=== PATIENT | male | born 1965 | race Caucasian/White ===

== ENCOUNTER 2023-10-10 08:58 | Outpatient (AMB) | payer OTHER, SELFPAY ==
--- NOTE | 2023-10-10 09:02 | AM.OFFWIN_ITS ---
Intake Vital Signs 10/10/23 09:45 Height 5 ft 11 in Weight 252 lb BMI 35.1 BP 126/80 Blood Pressure Location Lt brachial Position Sitting Pulse 90 Pulse Oximetry (%) 96 Intake Visit Reasons: elev blood sugar Intake Note: Patient is here for evaluation of elevated blood sugar. Patient reports he had recent labs completed on 09/30/23 and was informed by the ordering provider to see an urgent care of patients PCP for blood sugar being 386. Patient states he has a strong family history of DM and a medical history of Poriadic arthritis Patient reports he has not seen his PCP in a few years. PCP is Dr. Meza. Accompanied by: Self / Same As Patient Allergies No Known Allergies Allergy (Verified 10/10/23 09:21) Medication List - Last Reconciled 10/10/23 by Milka Pike, MECHANICAL MAINTENANCE SUPERVISOR- guselkumab (Tremfya) 100 mg subcut Q8W Do you need a note to return to daycare/school/sports/work: No HPI HPI Comments History of Present Illness Details 57 y/o M with obesity, psoriasis, alcoho l dependence Specialists: Rheum Derm Here today for c/o elevated blood sugars w/o dx of DM. Last Saturday labs done at [facility] ordered by Derm. Told of elevated glucose, Advised to f/u. HgA1c 10.2% done in office today. Has never been on meds for DM. Admits 40 lb wt loss, numbness and tingling in lower ext and blurred vision. Drinks 60 beers/week. Review of Systems Const All systems reviewed & are unremarkable except as noted in HPI and below Physical Exam Const Other: awake alert NAD scleras nonicteric MMM RRR LS CTAB Assessment & Plan Assessment & Plan (1) Diabetes mellitus type 2 with complications: Comment: hga1c 10.2% today, new Dx. Start Metformin 1000mg po BID Refer to DM Eye exam Check labs; declined education. Code(s): E11.8 - Type 2 diabetes mellitus with unspecified complications (2) Severe obesity (BMI 35.0-39.9) with comorbidity: Comment: life style mods encouraged. Code(s): E66.01 - Morbid (severe) obesity due to excess calories Plan: . Plan Total time spent caring for the patient today was 40 minutes. This includes time spent before the visit reviewing the chart, time spent during the visit, and time spent after the visit on documentation This note is constructed using voice recognition software. While every effort has been made to ensure accuracy in slate mixer, still errors may have been included Sometimes, these errors may affect the content or meaning of the given sentence . Orders: Orders Amylase Today E11.8 - Type 2 diabetes mellitus with unspecified complications Microalbumin, Random (w Creat) Today E11.8 - Type 2 diabetes mellitus with unspecified complications Lipase Today E11.8 - Type 2 diabetes mellitus with unspecified complications Vitamin B12 and Folate Today E11.8 - Type 2 diabetes mellitus with unspecified complications LDL Cholesterol Direct Today E11.8 - Type 2 diabetes mellitus with unspecified complications Comprehensive Met. Panel Today E11.8 - Type 2 diabetes mellitus with unspecified complications Referrals Ophthalmology Referral E11.8 - Type 2 diabetes mellitus with unspecified complications Medications: New metformin 1,000 mg PO BIDWMEAL 180 tabs 0RF Patient Instructions: RTO IN 2 WEEKS TO REVIEW LABS/EST CARE Coding Level of Care Code New Pt Level 4 (70013) Diagnoses Diabetes mellitus type 2 with complications E11.8 Severe obesity (BMI 35.0-39.9) with comorbidity E66.01
[2023-10-10 09:45] VITALS: BP 126/80; PULSE 90; O2SAT 96; BMI 35.1
== END 2023-10-10 15:25 | disposition home or self-care (01) ==
PROVIDERS: Visit Provider Nurse Practitioner Family
DX: E11.8 Type 2 diabetes mellitus with unspecified complications (principal); E66.01 Morbid (severe) obesity due to excess calories; Z68.35 Body mass index [BMI] 35.0-35.9, adult
CPT/HCPCS: 99204

== ENCOUNTER 2023-10-10 09:49 | Outpatient (REF) | payer OTHER, SELFPAY ==
[2023-10-10 12:16] LABS: Alanine Aminotransferase 25 U/L (0-40); Albumin Level 4.2 g/dL (3.5-5.0); Alkaline Phosphatase 69 U/L (39-117); Amylase 53 U/L (28-100); Anion Gap 11 (12-20); Aspartate Amino Transferase 22 U/L (5-37); Bilirubin Total 0.7 mg/dL (0.0-1.0); Blood Urea Nitrogen 14 mg/dL (9-16); Calcium 9.3 mg/dL (8.4-10.2); Carbon Dioxide 27 mmol/L (22-29); Chloride 105 mmol/L (96-108); Estimated Glomerular Filt Rate > 60; Glucose Random 306 mg/dL (60-115); Lipase 29 U/L (8-78); Potassium 4.2 mmol/L (3.3-5.1); Sodium 139 mmol/L (135-145); Total Protein 7.6 g/dL (6.5-8.0)
[2023-10-10 12:30] LABS: Creatinine Urine 102.65 mg/dL; Microalbum/Creatinine Ratio Ur 6.8 ug/mg cr (<30)
[2023-10-10 18:21] LABS: Folate 6.9 ng/mL (> or = 4.0); Vitamin B12 295 pg/mL (200-900)
[2023-10-11 14:39] LABS: LDL Cholesterol Direct 156 mg/dL (<100)
== END 2023-10-10 09:50 | disposition home or self-care (01) ==
LOC: HO.WFDLDS 09:49
PROVIDERS: Visit Provider Nurse Practitioner Family
DX: E11.8 Type 2 diabetes mellitus with unspecified complications (principal)
CPT/HCPCS: 36415; 80053; 82043; 82150; 82570; 82607; 82746; 83690; 83721

== ENCOUNTER 2023-11-21 07:48 | Outpatient (AMB) | payer OTHER, SELFPAY ==
--- NOTE | 2023-11-21 07:51 | A.OFFPC_ITS ---
Vital Signs 11/21/23 07:54 11/21/23 08:21 Height 5 ft Weight 5 lb 11 oz BMI 1.1 BP 132/74 Blood Pressure Location Lt brachial Position Sitting Pulse 88 Pulse Source Auscultation Pulse Oximetry (%) 98 Oxygen Delivery Method Room Air Intake Visit Reasons: Est Care Allergies No Known Allergies Allergy (Verified 11/21/23 07:54) Medication List - Last Reconciled 11/21/23 by Milka Pike, MOTORCYCLE POLICE OFFICER-BC guselkumab (Tremfya) 100 mg subcut Q8W metformin 1,000 mg PO BIDWMEAL Tobacco use date assessed: 11/21/23 Dental Screening Dental Screen Date: 11/21/23 Did you have a dental visit in the last 12 months?: No Did you have a dental problem in the last 6 months where you did not have access to dental care?: No Was dental information given to patient?: Patient has dentist HPI HPI Comments History of Present Illness Details 58 y/o M with obesity, psoriasis, alcoho l dependence , DM2, hyperlipidemia, 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 Repeat in 10 years. DM Eye - referral placed. [facility] Here today to establish primary care. Last seen at the walk-in clinic on October 09. Results from labs on that day as below. Labs from 10/10/2023 show normal electrolytes, normal renal function, elevated random glucose of 306, normal LFTs, normal amylase, normal lipase, normal B12 although on the low end of normal at 295, normal folate, normal urine microalbumin creatinine ratio, direct LDL 156 Since last office visit he has been taking the metformin as directed. Testing his blood sugar in the morning and reports that it is around 140-150. Did have GI upset at the onset of metformin use. However this has remedies. He does complain of numbness and decreased feeling in bilateral lower extremities worse on the right side. He reports chronic generalized pain specifically in the left upper extremity related to his psoriatic arthritis. He is followed by Rheumatology as well as Dermatology. He reports multiple images of his spine done. I have requested for him to sign in [place] so that I may review these records. He has not currently on a statin but he is willing to start 1. He has taking a lot of ibuprofen 800 mg to treat his radicular pain. He is never tried anything else for his pain. He is interested in starting meloxicam. Start rosuvastatin Start meloxicam [facility] Social History Housing: Apartment Patient Tobacco Use Status: Former Tobacco user Quit Date: 36 years ago Tobacco use type: Cigarette Cigarette Packs Per Day: 1 Years Smoked: 10 e-Cigarette/Vaping Use: Never Used service: No Current occupational status: employed Current occupation: contractor Current occupational exposures/hazards: No Cognitive needs: No Hearing needs: No Vision needs: Yes (glasses ) Questionnaire PHQ-9 Over the last 2 weeks, how often have you been bothered by any of the following problems? 1. Little interest or pleasure in doing things: not at all 2. Feeling down, depressed, or hopeless: not at all 3. Trouble falling or staying asleep, or sleeping too much: not at all 4. Feeling tired or having little energy: not at all 5. Poor appetite or overeating: not at all 6. Feeling bad about yourself - or that you are a failure or have let yourself or your family down: not at all 7. Trouble concentrating on things, such as reading the newspaper or watching television: not at all 8. Moving or speaking so slowly that other people could have noticed. Or the opposite - being so fidgety or restless that you have been moving around a lot more than usual: not at all 9. Thoughts that you would be better off or of hurting yourself in some way: not at all Total score: 0 Depression Screening Interpretation: Negative Depression Screening Done: Yes 98987 - PHQ-9 Billing: Yes Source: Developed by Drs. Jeffery Sutton, Mara Herndon, Ja Holguin and colleagues, with an educational kenny from [employer]. Thrive Questionnaire Date Thrive assessed: 11/21/23 I am a: Patient What is your living situation today?: I have a steady place to live Within the past 12 months, did the food you bought not last and you didn't have the money to get more?: Never true Within the past 12 months, did you worry whether your food would run out before you got money to buy more?: Never true Do you have trouble paying for medicines?: No Do you have trouble getting transportation to medical appointments?: No Do you have trouble paying your heating and electricity bill?: No Do you have trouble taking care of your child, family member or friend?: No Do you have trouble with day-to-day activities such as bathing, preparing meals, shopping, managing finances, etc.?: No Are you currently unemployed and looking for a job?: No Are you interested in more education?: No Please select the resources that you would like help with: None Currently or been in a relationship where the following occur: no concerns reported THRIVE Score: 0 AUDIT C Alcohol Use Questionnaire (AUDIT-C) 1. How often do you have a drink containing alcohol?: 4 or more times a week 2. How many drinks containing alcohol do you have on a typical day when you are drinking?: 1 or 2 3. How often do you have six or more drinks on one occasion?: Weekly Total Score: 7 Score Reviewed/Action Taken: Yes ARISTIDES-7 AMB Questionnaire ARISTIDES-7 Date ARISTIDES - 7 assessed: 11/21/23 Feeling nervous, anxious, or on edge: 0 = Not at all Not being able to stop or control worryin = Not at all Worrying too much about different things: 0 = Not at all Trouble relaxin = Not at all Being so restless that it is hard to sit still: 0 = Not at all Becoming easily annoyed or irritable: 0 = Not at all Feeling afraid as if something awful might happen: 0 = Not at all Total ARISTIDES-7 score (0-4 normal; 5-9 mild; 10-14 moderate; 15-21 severe): 0 Source: Developed by Drs. Jeffery Sutton, Mara Herndon, Ja Holguin and colleagues, with an educational kenny from [employer]. ARISTIDES-7 Assessment Billing ARISTIDES-7 Assessment Tool: ARISTIDES-7 Assessment 61018 Review of Systems Const All systems reviewed & are unremarkable except as noted in HPI and below Physical exam (Primary Care) Vital Signs: Last Vital Signs Pulse 88 11/21/23 08:21 BP 132/74 11/21/23 08:21 Pulse Ox 98 11/21/23 08:21 Oxygen Delivery Method Room Air 11/21/23 08:21 BMI result Body Mass Index 1.1 BMI Assessment/Plan discussion: High BMI High, discussed plan: lifestyle Tobacco/Smoking Status: Tobacco use Status Tobacco use date assessed 11/21/23 11/21/23 08:00 Patient Tobacco Use Status Former Tobacco user 11/21/23 08:00 Tobacco use type Cigarette 11/21/23 08:00 e-Cigarette/Vaping Use Never Used 11/21/23 08:00 PHQ-9: PHQ-9 Score PHQ-9: Total score 0 11/21/23 08:00 Depression Screening Interpretation: Negative Thrive Assessment: Date of Thrive Assessment Date Thrive assessed 11/21/23 11/21/23 08:00 Currently or been in a relationship where the following occur: no concerns reported Advance Care Planning discussion: Exists, not on file Date of discussion: 11/21/23 Who was present: Self Forms completed: Health Care Proxy and MOLST Actual minutes spent: 3 Const Other: Awake alert oriented Sclera is nonicteric bilat Regular rate and rhythm Lung sounds clear to auscultation bilat Bilateral lower extremities hairless from toes to custodial up lower leg, trace edema, skin intact, positive pedal pulses, abnormal monofilament and vibratory exam bilateral right worse than left. Office Procedures Diabetic Foot Exam G9226 - Diabetic Foot Exam Assessment and Plan Assessment & Plan (1) Diabetes mellitus type 2 with complications: Comment: hga1c 10.2% 10/20/2023 Continue Metformin 1000mg po BID Refer to DM Eye exam Code(s): E11.8 - Type 2 diabetes mellitus with unspecified complications (2) Hyperlipidemia associated with type 2 diabetes mellitus: Comment: LDL goal less than 70. Start rosuvastatin 20 mg p.o. daily. Code(s): E11.69 - Type 2 diabetes mellitus with other specified complication; E78.5 - Hyperlipidemia, unspecified (3) Screening for prostate cancer: Comment: Check PSA at next routine lab draw. Code(s): Z12.5 - Encounter for screening for malignant neoplasm of prostate (4) Peripheral sensory neuropathy due to type 2 diabetes mellitus: Comment: Affecting bilateral lower extremities. Goal will be to control diabetes and cholesterol. Monitor skin integrity Code(s): E11.42 - Type 2 diabetes mellitus with diabetic polyneuropathy (5) EtOH dependence: Comment: Current everyday ETOH use. About 60 beers a week. Reduction encouraged. B12 at the low end of normal. Start B12 2000 mcg daily. Code(s): F10.20 - Alcohol dependence, uncomplicated Qualifiers: Substance use status: uncomplicated Qualified Code(s): F10.20 - Alcohol dependence, uncomplicated (6) PVD (peripheral vascular disease): Comment: Based on clinical exam of hairless bilateral lower extremities. Start rosuvastatin. Code(s): I73.9 - Peripheral vascular disease, unspecified (7) Psoriatic arthritis: Comment: Managed by Dermatology as well as Rheumatology. [facility]. Dr. Brito. 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 Managed by Dermatology. 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 While every effort has been made to ensure accuracy in occ ther, still errors may have been included Sometimes, these errors may affect the content or meaning of the given sentence . Total time spent caring for the patient today was 60 minutes. This includes time spent before the visit reviewing the chart, time spent during the visit, and time spent after the visit on documentation Orders: Orders Lipid Panel 12/23/23 E11.69 - Type 2 diabetes mellitus with other specified complication, E11.8 - Type 2 diabetes mellitus with unspecified complications, E78.5 - Hyperlipidemia, unspecified, Z12.5 - Encounter for screening for malignant neoplasm of prostate Vitamin D 1,25 dihydroxy 12/23/23 E11.69 - Type 2 diabetes mellitus with other specified complication, E11.8 - Type 2 diabetes mellitus with unspecified complications, E78.5 - Hyperlipidemia, unspecified, Z12.5 - Encounter for screening for malignant neoplasm of prostate Vitamin B12 and Folate 12/23/23 E11.69 - Type 2 diabetes mellitus with other specified complication, E11.8 - Type 2 diabetes mellitus with unspecified complications, E78.5 - Hyperlipidemia, unspecified, Z12.5 - Encounter for screening for malignant neoplasm of prostate PSA, Ultra Sensitive 12/23/23 E11.69 - Type 2 diabetes mellitus with other specified complication, E11.8 - Type 2 diabetes mellitus with unspecified complications, E78.5 - Hyperlipidemia, unspecified, Z12.5 - Encounter for screening for malignant neoplasm of prostate AMB Diabetic Foot Exam Today E11.8 - Type 2 diabetes mellitus with unspecified complications Comprehensive [place]. Panel Fast 12/23/23 E11.69 - Type 2 diabetes mellitus with other specified complication, E11.8 - Type 2 diabetes mellitus with unspecified complications, E78.5 - Hyperlipidemia, unspecified, Z12.5 - Encounter for screening for malignant neoplasm of prostate Hemoglobin A1c 12/23/23 E11.69 - Type 2 diabetes mellitus with other specified complication, E11.8 - Type 2 diabetes mellitus with unspecified complications, E78.5 - Hyperlipidemia, unspecified, Z12.5 - Encounter for screening for malignant neoplasm of prostate TSH reflex Free T4 12/23/23 E11.69 - Type 2 diabetes mellitus with other specified complication, E11.8 - Type 2 diabetes mellitus with unspecified complications, E78.5 - Hyperlipidemia, unspecified, Z12.5 - Encounter for screening for malignant neoplasm of prostate Referrals Ophthalmology Referral E11.8 - Type 2 diabetes mellitus with unspecified com plications Medications: New meloxicam 15 mg PO DAILY 90 tabs 0RF rosuvastatin 20 mg PO DAILY 90 tabs 0RF mecobalamin (vitamin B12) 1,000 mcg PO DAILY 90 tabs 2RF Patient Instructions: Return to the office in December to follow up on chronic diseases, Be sure to get fasting labs done 1 week before so that we may discuss. Take all medications as directed. Return to the office sooner should you need anything. Coding Level of Care Code Est Pt Level 5 (47334) Complex EM visit Add On G2211 Diagnoses Diabetes mellitus type 2 with complications E11.8 Hyperlipidemia associated with type 2 diabetes mellitus E11.69; E78.5 Screening for prostate cancer Z12.5 Peripheral sensory neuropathy due to type 2 diabetes mellitus E11.42 Uncomplicated alcohol dependence F10.20 Substance use status: uncomplicated PVD (peripheral vascular disease) I73.9 Psoriatic arthritis L40.50 Immune disorder D89.9 CPT Codes Diabetic Foot Exam - CPT: G9226 - Diabetic Foot Exam ([id number]) Additional Codes ARISTIDES-7 Assessment Billing - ARISTIDES-7 Assessment Tool: ARISTIDES-7 Assessment 17588 ([id number]) Vital Signs *Quality* - Advance Care Planning discussion: Exists, not on file ([id number])
[2023-11-21 08:21] VITALS: BP 132/74; PULSE 88; O2SAT 98
== END 2023-11-21 08:36 | disposition home or self-care (01) ==
PROVIDERS: Visit Provider Nurse Practitioner Family
DX: E11.69 Type 2 diabetes mellitus with other specified complication (principal); E11.42 Type 2 diabetes mellitus with diabetic polyneuropathy; F10.20 Alcohol dependence, uncomplicated; I73.9 Peripheral vascular disease, unspecified; L40.50 Arthropathic psoriasis, unspecified; D89.9 Disorder involving the immune mechanism, unspecified; Z00.00 Encounter for general adult medical examination without abnormal findings; E78.5 Hyperlipidemia, unspecified; Z12.5 Encounter for screening for malignant neoplasm of prostate
CPT/HCPCS: 1123F; 99215; 99417; G2211; G9226

== ENCOUNTER 2024-09-29 07:55 | Outpatient (AMB) | payer OTHER, SELFPAY ==
--- NOTE | 2024-09-29 07:58 | A.OFFPC_ITS ---
Vital Signs 09/29/24 08:11 Height 6 ft 1 in Weight 263 lb 4 oz BMI 34.7 BP 132/76 Blood Pressure Location Lt brachial Position Sitting Respiration 13 Pulse 78 Pulse Source Pulse Oximeter Temp 97.4 F Temp Source Oral Pulse Oximetry (%) 98 Oxygen Delivery Method Room Air Intake Visit Reasons: Diabetes Intake Note: Follow up on diabetes and needs refill on meds Fish Butcher Required: No Allergies No Known Allergies Allergy (Verified 09/29/24 08:22) Medication List - Last Reconciled 09/29/24 by Milka Pike, ELECTRONICS REPAIR TECHNICIAN- guselkumab (Tremfya) 100 mg subcut Q8W mecobalamin (vitamin B12) 1,000 mcg PO DAILY meloxicam 15 mg PO DAILY metformin 1,000 mg PO DAILY rosuvastatin 20 mg PO DAILY Tobacco use date assessed: 09/29/24 Dental Screening Dental Screen Date: 09/29/24 Did you have a dental visit in the last 12 months?: Yes Did you have a dental problem in the last 6 months where you did not have access to dental care?: No Was dental information given to patient?: Patient has dentist HPI HPI Comments History of Present Illness Details 58 y/o M with obesity, psoriasis, alcoho l dependence , DM2, hyperlipidemia, 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 Repeat in 10 years. DM Eye - referral placed. [facility] Tdap to be given at next visit The patient is a 58-year-old male presenting with Type 2 Diabetes Mellitus. - Diabetes has seen remarkable improveme nt with an A1C drop to 7.2 from 10.2 documented previously, facilitated by reduced alcohol intake and diligent glucose monitoring at home. Metformin-induced gastrointestinal distress necessitates evening administration. Only can tolerate once per day. Not on ER version as insurance denied previously. Has not scheduled eye exam yet.Advised of need to do this CARRIE. - The patient's arthritis predominantly affects the hands, posing significant challenges in movement and functionality. The condition is chronic with progressive symptoms over time. R index finger is locked. R hand dominant. Interested in seeing Ortho. Meloxicam helps but only for 4 hours. - Psoriasis management with Jim, man aged by [facility]. - Neuropathy BLE manifests as persistent lower limb numbness and tingling from below knees. - Hyperlipidemia is addressed through on going rosuvastatin regimen, supported by dietary improvements. Wonders about measles immunity w/ recent outbreaks.Vaccinated in childhood. Labs drawn today, results pending Results: Labs from 10/10/2023 show normal electrolytes, normal renal function, elevated random glucose of 306, normal LFTs, normal amylase, normal lipase, normal B12 although on the low end of normal at 295, normal folate, normal urine microalbumin creatinine ratio, direct LDL 156 Discussion During our discussion, I addressed the patient's Type 2 Diabetes Mellitus management, acknowledging the positive progression in A1C levels. Plan to switch to an extended-release formulation of metformin to mitigate gastric effects,will need PA. Additionally, we discussed arthritis and neuropathy issues, with a plan to transition pain management to diclofenac, stop meloxicam. Refer to Ortho for hands. Does not want to see Rheum. Education on the risks of uncontrolled glucose on neuropathy and further complications was provided. Monitor skin integrity BLE. We reviewed the importance of ongoing eye exams due to the diabetic diagnosis and psoriasis treatment history. A&P 1. Type 2 Diabetes Mellitus: Current man agement includes metformin, with improved A1C levels demonstrating effective control since alcohol reduction. Transitioning to extended-release metformin pending insurance approval to alleviate side effects. 2gm/day 2. Arthritis: The significant impact on hand function warrants a change to diclofenac for pain management, given current regimen limitations. Refer to [facility] ortho 3. Psoriasis: Tremfya treatment continue s; dermatology follow-up is upcoming. 4. Hyperlipidemia: Ongoing rosuvastatin, labs pending 5. Neuropathy: Symptoms remain, highligh ting the importance of continued glucose management. 6. Alcohol Use Disorder (in remission): Encouragement extended for ongoing reduced use. Patient was informed and verbally consented to the use of an ambient scribe for clinic note documentation during this visit. Total time spent caring for the patient today was 45 minutes. This includes time spent before the visit reviewing the chart, time spent during the visit, and time spent after the visit on documentation, reviewing laboratory results, diagnostic imaging, medications, performing a medically necessary evaluation, counseling on diagnoses, care coordination, ordering appropriate tests, ordering appropriate medications, review of tests performed by other providers, reporting test results with the patient, communication with other healthcare providers. [facility] Surgical History (Updated 09/29/24 @ 07:06 by Milka Pike, [facility]) History of colonoscopy (~2020) Social History Housing: Apartment Patient Tobacco Use Status: Former Tobacco user Tobacco use type: Cigarette Cigarette Packs Per Day: 1 Years Smoked: 10 e-Cigarette/Vaping Use: Never Used service: No Current occupational status: employed Current occupation: contractor Current occupational exposures/hazards: No Cognitive needs: No Hearing needs: No Vision needs: Yes (glasses ) Questionnaire PHQ-9 Over the last 2 weeks, how often have you been bothered by any of the following problems? 1. Little interest or pleasure in doing things: not at all 2. Feeling down, depressed, or hopeless: not at all 3. Trouble falling or staying asleep, or sleeping too much: not at all 4. Feeling tired or having little energy: not at all 5. Poor appetite or overeating: not at all 6. Feeling bad about yourself - or that you are a failure or have let yourself or your family down: not at all 7. Trouble concentrating on things, such as reading the newspaper or watching television: not at all 8. Moving or speaking so slowly that other people could have noticed. Or the opposite - being so fidgety or restless that you have been moving around a lot more than usual: not at all 9. Thoughts that you would be better off or of hurting yourself in some way: not at all Total score: 0 Depression Screening Interpretation: Negative Depression Screening Done: Yes 56480 - PHQ-9 Billing: Yes Source: Developed by Drs. Jeffery Sutton, Mara Herndon, Ja Holguin and colleagues, with an educational kenny from [employer]. Thrive Questionnaire Date Thrive assessed: 09/29/24 I am a: Patient What is your living situation today?: I have a steady place to live Within the past 12 months, did the food you bought not last and you didn't have the money to get more?: Never true Within the past 12 months, did you worry whether your food would run out before you got money to buy more?: Never true Do you have trouble paying for medicines?: No Do you have trouble getting transportation to medical appointments?: No Do you have trouble paying your heating and electricity bill?: No Do you have trouble taking care of your child, family member or friend?: No Do you have trouble with day-to-day activities such as bathing, preparing meals, shopping, managing finances, etc.?: No Are you currently unemployed and looking for a job?: No Are you interested in more education?: No THRIVE Score: 0 AUDIT C Alcohol Use Questionnaire (AUDIT-C) 1. How often do you have a drink containing alcohol?: 2-4 times a month 2. How many drinks containing alcohol do you have on a typical day when you are drinking?: 5 or 6 3. How often do you have six or more drinks on one occasion?: Less than monthly Total Score: 5 Score Reviewed/Action Taken: Yes ARISTIDES-7 AMB Questionnaire ARISTIDES-7 Date ARISTIDES - 7 assessed: 09/29/24 Feeling nervous, anxious, or on edge: 0 = Not at all Not being able to stop or control worryin = Not at all Worrying too much about different things: 0 = Not at all Trouble relaxin = Not at all Being so restless that it is hard to sit still: 0 = Not at all Becoming easily annoyed or irritable: 0 = Not at all Feeling afraid as if something awful might happen: 0 = Not at all Total ARISTIDES-7 score (0-4 normal; 5-9 mild; 10-14 moderate; 15-21 severe): 0 Source: Developed by Drs. Jeffery Sutton, Mara Herndon, Ja Holguin and colleagues, with an educational kenny from [employer]. ARISTIDES-7 Assessment Billing ARISTIDES-7 Assessment Tool: ARISTIDES-7 Assessment 65416 Physical exam (Primary Care) Vital Signs: Last Vital Signs Temp 97.4 F 09/29/24 08:11 Pulse 78 09/29/24 08:11 Resp 13 09/29/24 08:11 BP 132/76 09/29/24 08:11 Pulse Ox 98 09/29/24 08:11 Oxygen Delivery Method Room Air 09/29/24 08:11 BMI result Body Mass Index 34.7 BMI Assessment/Plan discussion: High BMI High, discussed plan: lifestyle Tobacco/Smoking Status: Tobacco use Status Tobacco use date assessed 09/29/24 09/29/24 08:01 Patient Tobacco Use Status Former Tobacco user 09/29/24 07:59 Tobacco use type Cigarette 09/29/24 07:59 e-Cigarette/Vaping Use Never Used 09/29/24 07:59 PHQ-9: PHQ-9 Score PHQ-9: Total score 0 09/29/24 07:59 Depression Screening Interpretation: Negative Thrive Assessment: Date of Thrive Assessment Date Thrive assessed 09/29/24 09/29/24 07:59 Advance Care Planning discussion: Exists, not on file Date of discussion: 11/21/23 Who was present: Self Forms completed: Health Care Proxy and MOLST Actual minutes spent: 3 Const Other: Awake alert oriented Sclera is nonicteric bilat Regular rate and rhythm Lung sounds clear to auscultation bilat LROM R index finger, neurovasc intact, pain over hands and fingers w/ palp and active ROM generally speaking Bilateral lower extremities hairless from toes to [facility] up lower leg, no edema, skin intact, positive pedal pulses, abnormal monofilament and vibratory exam bilateral right worse than left. Office Procedures Diabetic Foot Exam G9226 - Diabetic Foot Exam Results AMB Hemoglobin A1c AMB Hemoglobin A1c 7.2 % Last Edit by Paulina Cintron MA on 09/29/24 08:31 Coding Level of Care Code Est Pt Level 5 (76207) Complex EM visit Add On G2211 Diagnoses Diabetes mellitus type 2 with complications E11.8 Trigger index finger of right hand M65.321 Trigger finger location: index finger Immune disorder D89.9 Uncomplicated alcohol dependence F10.20 Substance use status: uncomplicated Hyperlipidemia associated with type 2 diabetes mellitus E11.69; E78.5 Peripheral sensory neuropathy due to type 2 diabetes mellitus E11.42 Psoriatic arthritis L40.50 PVD (peripheral vascular disease) I73.9 Obesity (BMI 30-39.9) E66.9 CPT Codes Diabetic Foot Exam - CPT: G9226 - Diabetic Foot Exam ([id number]) Additional Codes ARISTIDES-7 Assessment Billing - ARISTIDES-7 Assessment Tool: ARISTIDES-7 Assessment 45701 ([id number]) PHQ-9 - 31993 - PHQ-9 Billing: Yes ([id number]) Vital Signs *Quality* - Advance Care Planning discussion: Exists, not on file ([id number]) Assessment & Plan Assessment & Plan (1) Diabetes mellitus type 2 with complications: Code(s): E11.8 - Type 2 diabetes mellitus with unspecified complications Category: Medical (2) Right trigger finger: Code(s): M65.30 - Trigger finger, unspecified finger Category: Medical Qualifiers: Trigger finger location: index finger Qualified Code(s): M65.321 - Trigger finger, right index finger (3) Immune disorder: Comment: Secondary to the use tremfya, at risk for infection and neutropenia. Managed by Dermatology. Code(s): D89.9 - Disorder involving the immune mechanism, unspecified Category: Medical (4) EtOH dependence: Comment: Current everyday ETOH use. About 60 beers a week. Reduction encouraged. B12 at the low end of normal. on B12 2000 mcg daily. Code(s): F10.20 - Alcohol dependence, uncomplicated Category: Medical Qualifiers: Substance use status: uncomplicated Qualified Code(s): F10.20 - Alcohol dependence, uncomplicated (5) Hyperlipidemia associated with type 2 diabetes mellitus: Comment: LDL goal less than 70. on rosuvastatin 20 mg p.o. daily. Code(s): E11.69 - Type 2 diabetes mellitus with other specified complication; E78.5 - H yperlipidemia, unspecified Category: Medical (6) Peripheral sensory neuropathy due to type 2 diabetes mellitus: Comment: Affecting bilateral lower extremities. Goal will be to control diabetes and cholesterol. Monitor skin integrity Code(s): E11.42 - Type 2 diabetes mellitus with diabetic polyneuropathy Category: Medical (7) Psoriatic arthritis: Comment: Managed by Dermatology as well as Rheumatology. [facility]. Dr. Brito. Reports no longer active with Rheum as Derm is managing on tremfya Code(s): L40.50 - Arthropathic psoriasis, unspecified Category: Medical (8) PVD (peripheral vascular disease): Comment: Based on clinical exam of hairless bilateral lower extremities. on rosuvastatin. Code(s): I73.9 - Peripheral vascular disease, unspecified Category: Medical (9) Obesity (BMI 30-39.9): Comment: with dm and hld Code(s): E66.9 - Obesity, unspecified Category: Medical Plan . Orders: Orders AMB Hemoglobin A1c Today E11.8 - Type 2 diabetes mellitus with unspecified complications, Z13.9 - Encounter for screening, unspecified Microalbumin, Random (w Creat) Today E11.8 - Type 2 diabetes mellitus with unspecified complications MMR IgG Measles Mumps Rubella Today D89.9 - Disorder involving the immune mechanism, unspecified Referrals Orthopedics Referral M65.30 - Trigger finger, unspecified finger Medications: New metformin ER 1,000 mg (2 x 500 mg) PO BID 90 days 360 tabs 2RF diclofenac sodium 50 mg PO Q12H PRN 180 tabs 2RF pain Discontinued meloxicam Discontinued Reason: Patient Completed Course 15 mg PO DAILY 90 tabs 0RF
[2024-09-29 08:11] VITALS: BP 132/76; PULSE 78; RESP 13; TEMP 36.3; O2SAT 98; BMI 34.7
== END 2024-09-29 08:43 | disposition home or self-care (01) ==
LOC: HO.HMCFM 07:55
PROVIDERS: PCP Nurse Practitioner Family; Visit Provider Nurse Practitioner Family
DX: E11.8 Type 2 diabetes mellitus with unspecified complications (principal); M65.321 Trigger finger, right index finger; D89.9 Disorder involving the immune mechanism, unspecified; F10.20 Alcohol dependence, uncomplicated; E11.69 Type 2 diabetes mellitus with other specified complication; E78.5 Hyperlipidemia, unspecified; E11.42 Type 2 diabetes mellitus with diabetic polyneuropathy; L40.50 Arthropathic psoriasis, unspecified; I73.9 Peripheral vascular disease, unspecified; E66.9 Obesity, unspecified; Z13.9 Encounter for screening, unspecified; Z00.00 Encounter for general adult medical examination without abnormal findings

== ENCOUNTER 2024-09-29 07:55 | Outpatient (REF) | payer OTHER, SELFPAY ==
[2024-09-30 10:08] LABS: Rubella IgG Antibody 1.79 Index; Rubeola IgG (Measles) <13.50 AU/mL
== END 2024-09-29 07:56 | disposition home or self-care (01) ==
LOC: HO.LAB 07:55
PROVIDERS: PCP Nurse Practitioner Family; Visit Provider Nurse Practitioner Family
DX: E11.8 Type 2 diabetes mellitus with unspecified complications (principal); M65.321 Trigger finger, right index finger; D89.9 Disorder involving the immune mechanism, unspecified; F10.20 Alcohol dependence, uncomplicated; E11.69 Type 2 diabetes mellitus with other specified complication; E78.5 Hyperlipidemia, unspecified; E11.42 Type 2 diabetes mellitus with diabetic polyneuropathy; L40.50 Arthropathic psoriasis, unspecified; I73.9 Peripheral vascular disease, unspecified; E66.9 Obesity, unspecified; Z68.34 Body mass index [BMI] 34.0-34.9, adult
CPT/HCPCS: 36415; 83036; 86735; 86762; 86765; 96127; 99212

== ENCOUNTER 2024-09-29 08:02 | Outpatient (REF) | payer OTHER, SELFPAY ==
[2024-09-29 11:49] LABS: Alanine Aminotransferase 20 U/L (0-40); Albumin Level 4.2 g/dL (3.5-5.0); Alkaline Phosphatase 63 U/L (39-117); Anion Gap 11 (12-20); Aspartate Amino Transferase 20 U/L (5-37); Bilirubin Total 0.5 mg/dL (0.0-1.0); Blood Urea Nitrogen 12 mg/dL (9-16); Calcium 9.4 mg/dL (8.4-10.2); Carbon Dioxide 24 mmol/L (22-29); Chloride 107 mmol/L (96-108); Cholesterol 188 mg/dL (<200); Estimated Glomerular Filt Rate > 60; Glucose Fasting 147 mg/dL (60-99); HDL Cholesterol 42 mg/dL (>40); LDL Cholesterol Calculated 130 mg/dL (<100); Sodium 138 mmol/L (135-145); Total Protein 7.2 g/dL (6.5-8.0); Triglycerides 81 mg/dL (<150)
[2024-09-29 11:54] LABS: TSH reflex Free T4 1.79 uIU/mL (0.32-4.0)
[2024-09-29 12:06] LABS: Folate 6.9 ng/mL (> or = 4.0); Vitamin B12 702 pg/mL (200-900)
[2024-09-29 12:14] LABS: Microalbumin Urine < 5.0 mg/L
[2024-10-04 13:48] LABS: VITAMIN D (1,25 OH) D3 42 pg/mL; Vit D (1,25-Dihydroxy) Total 42 pg/mL (18-72); Vitamin D (1,25 OH) D2 <8 pg/mL
[2024-10-05 13:53] LABS: PSA, Ultra Sensitive 0.21 ng/mL
== END 2024-09-29 08:03 | disposition home or self-care (01) ==
LOC: HO.WFDLDS 08:02
PROVIDERS: Visit Provider Nurse Practitioner Family
DX: E11.69 Type 2 diabetes mellitus with other specified complication (principal); E78.5 Hyperlipidemia, unspecified; Z12.5 Encounter for screening for malignant neoplasm of prostate
CPT/HCPCS: 36415; 80053; 80061; 82043; 82570; 82607; 82652; 82746; 84153; 84443

== ENCOUNTER 2024-11-02 08:31 | Outpatient (REF) | payer OTHER, SELFPAY ==
--- NOTE | ~2024-11-02 | XR_ITS ---
EXAMINATION: XR HAND, RIGHT CLINICAL INFORMATION: M79.641 - Pain in right hand ; attention to second digit. COMPARISON: None available. TECHNIQUE: PA, lateral, and oblique views of the right hand. FINDINGS: The bones and soft tissues are normal. No fracture. Alignment is anatomic. Mild degenerative arthritis in the first CMC joint. Remainder of the joints appear normal. No erosions. Specifically, no abnormality noted in the second digit. Mild negative ulnar variance noted. No abnormal soft tissue calcifications. Soft tissues appear normal. XR/XR hand RT min 3V IMPRESSION: 1. No acute bony abnormalities. 2. Mild degenerative arthritis in the first CMC joint. Electronically signed by: Jonnathan Balderas MD 11/02/2024 10:09 AM EDT
== END 2024-11-02 08:32 | disposition home or self-care (01) ==
LOC: HO.HOSX 08:31
PROVIDERS: PCP Nurse Practitioner Family
DX: M79.641 Pain in right hand (principal); L40.50 Arthropathic psoriasis, unspecified
CPT/HCPCS: 73130; 99202

== ENCOUNTER 2024-11-02 08:31 | Outpatient (AMB) | payer OTHER, SELFPAY ==
--- NOTE | 2024-11-02 08:38 | MHC.OFFVIS ---
Vital Signs 11/02/24 08:43 Height 6 ft 1 in Weight 263 lb BMI 34.7 Handedness Right Intake Visit Reasons: Trigger finger, Right Index Finger Intake Note: Eligio is a 59 year old right hand dominant male who presents today for a new patient visit for evaluation of right index finger pain. He states that he is unable to make a full fist. Patient is unable to turn door nobs. 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 Patient is a humphries. Patient has been noticing this for a couple years. Allergies No Known Allergies Allergy (Verified 11/02/24 08:42) HPI HPI Trigger finger, Right Index Finger: Details: Eligio is a 59 year old right hand dominant male who presents today for a new patient visit for evaluation of right index finger pain. He states that he is unable to make a full fist. Patient is unable to turn door nobs. 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 Patient is a humphries. Patient has been noticing this for a couple years. Patient has a known history of psoriatic arthritis, and states that this affects multiple joints, including both of his hands. Denies numbness or tingling. No other acute complaints or concerns at this time. [facility] Surgical History (Updated 09/29/24 @ 07:06 by Milka Pike [facility]) History of colonoscopy (~2020) Social History Housing: Apartment Patient Tobacco Use Status: Former Tobacco user Tobacco use type: Cigarette Cigarette Packs Per Day: 1 Years Smoked: 10 e-Cigarette/Vaping Use: Never Used service: No Current occupational status: employed Current occupation: contractor Current occupational exposures/hazards: No Cognitive needs: No Hearing needs: No Vision needs: Yes (glasses ) Review of Systems Const All systems reviewed & are unremarkable except as noted in HPI and below Physical Exam Vital Signs: BMI result Body Mass Index 34.7 Extrem Other: Patient is alert, oriented, and in no acute distress. Neuro: Normal sensation of the tips of all digits of the right hand at this time Vascular: Cap refill brisk Pain: No tenderness to palpation about the A1 toyin of the right index finger Patient does report some discomfort with the extremes of range of motion of the right index finger ROM: Patient is able to get approximately 75% of the way to a closed fist with the right index finger with encouragement Patient is able to make a closed fist and extend all other digits of the right hand fully and without difficulty No visible or palpable locking or catching Skin: No lacerations or abrasions. General: No ecchymosis, erythema, or evidence of infection. Psych: Appears grossly normal Affect normal Attitude cooperative Results Reviewed Results Reviewed: X-rays obtained in the office today and independently reviewed by me, Sunday Perez PA-C, demonstrate no fracture or acute bony abnormality of the right hand. Assessment & Plan Assessment & Plan (1) Psoriatic arthritis: Comment: Managed by Dermatology as well as Rheumatology. [facility]. Dr. Brito. Reports no longer active with Rheum as [facility]erm is [facility] Code(s): L40.50 - Arthropathic psoriasis, unspecified Category: Medical Plan 1. Stiffness of right index finger 2. Psoriatic arthritis Patient is educated about this condition Patient is educated about the typical recovery course At this time, patient is referred for occupational therapy for range of motion and gentle strengthening of the right hand in the setting of stiffness of the right index finger Patient is also advised to follow-up with his sales process manager for further evaluation of psoriatic arthritis Patient is amenable to this plan Follow-up as needed Orders: Orders OT Evaluation and Treatment Today L40.50 - Arthropathic psoriasis, unspecified XR hand RT min 3V Today M79.641 - Pain in right hand Coding Level of Care Code New Pt Level 3 (45691) Diagnoses Psoriatic arthritis L40.50
[2024-11-02 08:43] VITALS: BMI 34.7
== END 2024-11-02 09:19 | disposition home or self-care (01) ==
LOC: HO.HOS 08:32
PROVIDERS: PCP Nurse Practitioner Family
DX: L40.50 Arthropathic psoriasis, unspecified (principal); M25.641 Stiffness of right hand, not elsewhere classified
CPT/HCPCS: 99203

== ENCOUNTER → 2024-11-02 08:47 | Outpatient (BNV) | payer OTHER, SELFPAY | PROVIDERS: PCP Nurse Practitioner Family; Visit Provider Radiology Diagnostic Radiology | DX: M79.641 Pain in right hand (principal) | CPT/HCPCS: 73130 ==

== ENCOUNTER 2025-04-21 08:32 | Outpatient (AMB) | payer OTHER, SELFPAY ==
--- NOTE | 2025-04-21 08:35 | A.OFFPC_ITS ---
Vital Signs 04/21/25 08:39 Height 6 ft 1 in Weight 256 lb 6 oz BMI 33.8 BP 138/76 Blood Pressure Location Rt brachial Position Sitting Respiration 12 Pulse 75 Pulse Source Pulse Oximeter Temp 97.2 F Temp Source Oral Pulse Oximetry (%) 96 Oxygen Delivery Method Room Air Intake Visit Reasons: diabetes management Intake Note: Follow up on dm. 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 Repeat in 10 years. DM Eye - referral placed. [facility] Tdap 04/21/25 Flu 04/21/25 Specialists: Rheum - Dr Chavarria, stopped seeing him Derm @ [place] appt tomorrow [facility]th[facility] Orth[facility] Health Maintenance: Colon done at age 54 done at [facility]. Repeat in 10 years. DM Eye - referral placed. [facility] Tdap to be given at next visit History of Present Illness The patient is a 59-year-old male presenting for a chronic disease management visit. Type 2 diabetes mellitus: - The patient has type 2 diabetes mellit us with a recent HgbA1c of 7.7, which is an increase from his previous value of 7.2. - He was prescribed metformin 1000 mg tw ice a day but has self-reduced his dose to one tablet once a day due to significant gastrointestinal side effects. - An attempt to switch to an alternative medication was previously denied by his insurance. - He reports having made significant janice nges to his diet. - A complication of his diabetes is neur opathy affecting both of his extremities. - He has not yet completed his annual di abetic eye exam. Hyperlipidemia: - He has a history of hyperlipidemia and reports adherence to his rosuvastatin prescription. Psoriasis: - His psoriasis, managed by dermatology, is no longer responding to Tremfya after four years of treatment. - He has a follow-up appointment with samantha cely scheduled for tomorrow. Alcohol Dependence, in remission: - The patient has a history of alcohol d ependence, previously consuming over 60 beers per week, which he associated with pain from his job. - He reports that he stopped drinking on June 07, with exceptions for his son's wedding in August and a recent trip to [place] where he had three beers over ten days. Vitamin B12 deficiency: - He has a history of B12 deficiency rel ated to his alcohol dependence and reports taking his B12 supplements. - A B12 level was drawn today to monitor his status. Past Medical History - Type 2 diabetes mellitus - Hyperlipidemia - Psoriasis - Vitamin B12 deficiency secondary to al cohol dependence - Neuropathy affecting bilateral extremi ties - History of four COVID-19 infections Review of Systems - Gastrointestinal: Reports gastrointest inal upset with metformin. - Integumentary: Reports his psoriasis i s no longer responding to medication. Denies open areas or sores on feet. 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 - Neurological: Reports neuropathy in bi lateral extremities. Physical Exam General: Well developed, well nourished, in no acute distress. Appears stated age. Head: Normocephalic, atraumatic. Eyes: Pupils are equal, round and reactive to light and accommodation. Conjunctivae are clear. Vision grossly normal. Lungs: Clear to auscultation bilaterally. No rales, rhonchi or wheeze noted. Good air flow in all shah. Heart: Regular rate and rhythm. No murmurs, click, rubs or gallops are noted. Abdomen: Bowel sounds present in all quadrants. The abdomen is soft, nontender, with no masses or organomegaly noted. No hernias are noted. Musculoskeletal: Joints are nontender, without swelling, redness, or effusions. Pulses: Peripheral pulses are equal and palpable bilaterally. Extremities: No clubbing, cyanosis nor edema is noted. Neuropathy affects bilateral extremities. Psych: Mood and affect appropriate. Results - Lab Results: HgbA1c today is 7.7%. The previous HgbA1c was 7.2%. - Tests Ordered: A B12 level was drawn t amalia, with results pending. Medical Decision Making The patient is a 59-year-old male presenting for chronic disease management. His HgbA1c has increased to 7.7% from a previous 7.2%, which is attributed to his dose reduction of metformin to once daily due to gastrointestinal intolerance. An attempt to prescribe an alternative medication was previously denied by his current insurance. The patient is in the process of changing insurance plans to [employer]. Given this change, the plan is to defer any modifications to his diabetes regimen until the new insurance is active, at which point an attempt to prescribe an alternative to metformin will be made. Similarly, his psoriasis medication, Tremfya, has lost efficacy, and any new treatment prescribed by his management consultant will also require authorization under the new plan. He has made admirable lifestyle changes, particularly a significant reduction in alcohol consumption, which was previously a major concern. He continues rosuvastatin for hyperlipidemia and a B12 supplement, with a B12 level checked today. He was advised to complete his annual diabetic eye exam and agreed to receive Tdap and flu vaccinations today. Follow-up will be in early next year to manage his conditions under the new insurance. Plan 1. Type 2 Diabetes Mellitus - The patient's HgbA1c has risen to 7.7 from 7.2, likely due to medication non- adherence with metformin secondary to side effects. - He is currently taking metformin 1 tab let once daily instead of the prescribed 1000 mg twice daily. - We will defer changes to his medicatio n regimen until his new insurance plan ([employer]) is active, at which point we will attempt to prescribe an alternative to metformin that is better tolerated. - He has not had his diabetic eye exam; a new referral will be placed under his new insurance if not completed by the end of the year. - Continue with dietary modifications. 2. Hyperlipidemia - Continue rosuvastatin as prescribed. 3. Psoriasis - The patient reports that Tremfya is no longer effective after four years. - He will see his management consultant tomorrow to discuss alternative treatments, which will likely require a prior authorization with his new insurance. 4. Alcohol Dependence, In Remission - The patient has made significant progr ess, having largely stopped drinking alcohol since May. - Encourage continued abstinence. 5. Vitamin B12 Deficiency - Continue B12 supplements. - A B12 level was drawn today to assess for efficacy; results will be communicated to the patient via text. 6. Health Maintenance - The patient agreed to and will receive a Tdap vaccine and an influenza vaccine today. 7. Follow-Up - Schedule a follow-up appointment in or July to reassess conditions and manage medications under the new insurance plan. Patient Instructions - Continue to take your metformin once a day for now. We will try to change this medication when your new insurance starts. - Keep taking your rosuvastatin for chol esterol. - Continue taking your B12 supplement. - You will receive a flu shot and a teta nus (Tdap) shot today before you leave. - Make sure to follow up with your skin doctor tomorrow about your psoriasis. - Please try to get your yearly eye exam for diabetes done before the end of the year. If you can't, we will send a new referral with your new insurance. - We will text your lab results to you o nce they are available. - Please schedule a follow-up appointmen t at the front desk monitor for June or July. Consent The benefits of the Tdap vaccine, for tetanus and pertussis (whooping cough), and the influenza vaccine were discussed. The patient verbally consented to receiving both immunizations during the visit. Patient was informed and verbally consented to the use of an ambient scribe for clinic note documentation during this visit. Total time spent caring for the patient today was 30 minutes. This includes time spent before the visit reviewing the chart, time spent during the visit, and time spent after the visit on documentation, reviewing laboratory results, diagnostic imaging, medications, performing a medically necessary evaluation, counseling on diagnoses, care coordination, ordering appropriate tests, ordering appropriate medications, review of tests performed by other providers, reporting test results with the patient, communication with other healthcare providers. [facility] Surgical History (Updated 09/29/24 @ 07:06 by Milka Pike, [facility]) History of colonoscopy (~2020) Social History Housing: Apartment Patient Tobacco Use Status: Former Tobacco user Tobacco use type: Cigarette Cigarette Packs Per Day: 1 Years Smoked: 10 e-Cigarette/Vaping Use: Never Used service: No Current occupational status: employed Current occupation: contractor Current occupational exposures/hazards: No Cognitive needs: No Hearing needs: No Vision needs: Yes (glasses ) Questionnaire PHQ-9 Over the last 2 weeks, how often have you been bothered by any of the following problems? 1. Little interest or pleasure in doing things: not at all 2. Feeling down, depressed, or hopeless: not at all 3. Trouble falling or staying asleep, or sleeping too much: not at all 4. Feeling tired or having little energy: not at all 5. Poor appetite or overeating: not at all 6. Feeling bad about yourself - or that you are a failure or have let yourself or your family down: not at all 7. Trouble concentrating on things, such as reading the newspaper or watching television: not at all 8. Moving or speaking so slowly that other people could have noticed. Or the opposite - being so fidgety or restless that you have been moving around a lot more than usual: not at all 9. Thoughts that you would be better off or of hurting yourself in some way: not at all Total score: 0 Depression Screening Interpretation: Negative Depression Screening Done: Yes 27593 - PHQ-9 Billing: Yes Source: Developed by Drs. Jeffery Sutton, Mara Herndon, Ja Holguin and colleagues, with an educational kenny from [employer]. Thrive Questionnaire Date Thrive assessed: 09/29/24 I am a: Patient What is your living situation today?: I have a steady place to live Within the past 12 months, did the food you bought not last and you didn't have the money to get more?: I choose not to answer this question Within the past 12 months, did you worry whether your food would run out before you got money to buy more?: I choose not to answer this question Do you have trouble paying for medicines?: I choose not to answer this question Do you have trouble getting transportation to medical appointments?: I choose not to answer this question Do you have trouble paying your heating and electricity bill?: I choose not to answer this question Do you have trouble taking care of your child, family member or friend?: I choose not to answer this question Do you have trouble with day-to-day activities such as bathing, preparing meals, shopping, managing finances, etc.?: I choose not to answer this question Are you currently unemployed and looking for a job?: I choose not to answer this question Are you interested in more education?: I choose not to answer this question Please select the resources that you would like help with: None Currently or been in a relationship where the following occur: I choose not to answer THRIVE Score: 0 AUDIT C Alcohol Use Questionnaire (AUDIT-C) 1. How often do you have a drink containing alcohol?: Monthly or less 2. How many drinks containing alcohol do you have on a typical day when you are drinking?: 1 or 2 3. How often do you have six or more drinks on one occasion?: Never Total Score: 1 Score Reviewed/Action Taken: Yes ARISTIDES-7 AMB Questionnaire ARISTIDES-7 Date ARISTIDES - 7 assessed: 09/29/24 Feeling nervous, anxious, or on edge: 0 = Not at all Not being able to stop or control worryin = Not at all Worrying too much about different things: 0 = Not at all Trouble relaxin = Not at all Being so restless that it is hard to sit still: 0 = Not at all Becoming easily annoyed or irritable: 0 = Not at all Feeling afraid as if something awful might happen: 0 = Not at all Total ARISTIDES-7 score (0-4 normal; 5-9 mild; 10-14 moderate; 15-21 severe): 0 Source: Developed by Drs. Jeffery Sutton, Mara Herndon, Ja Holguin and colleagues, with an educational kenny from [employer]. Physical exam (Primary Care) Vital Signs: Last Vital Signs Temp 97.2 F 04/21/25 08:39 Pulse 75 04/21/25 08:39 Resp 12 04/21/25 08:39 BP 138/76 04/21/25 08:39 Pulse Ox 96 04/21/25 08:39 Oxygen Delivery Method Room Air 04/21/25 08:39 BMI result Body Mass Index 33.8 Tobacco/Smoking Status: Tobacco use Status Tobacco use date assessed 04/21/25 04/21/25 08:37 Patient Tobacco Use Status Former Tobacco user 04/21/25 08:37 Tobacco use type Cigarette 04/21/25 08:37 e-Cigarette/Vaping Use Never Used 04/21/25 08:37 PHQ-9: PHQ-9 Score PHQ-9: Total score 0 04/21/25 08:43 Depression Screening Interpretation: Negative Thrive Assessment: Date of Thrive Assessment Date Thrive assessed 09/29/24 04/21/25 08:37 Currently or been in a relationship where the following occur: I choose not to answer Office Procedures Flu Questionnaire Does the patient have a severe egg allergy?: No Does the patient have severe life threatening allergies?: No Does the patient have a fever or illness today?: No Has the patient ever had Guillain-[place] Syndrome?: No Has the patient ever had any past reaction to a flu shot?: No Results AMB Hemoglobin A1c AMB Hemoglobin A1c 7.7 % Last Edit by Paulina Cintron MA on 04/21/25 08:49 Immunizations Fluarix [id number] (PF) 45 mcg (15 mcg x 3)/0.5 mL IM syringe Performing Provider: DARREN Nagy Performing Location: [facility] [place] [facility] Administered by: Paulina Cintron MA on 04/21/25 09:14 Dose Route Admin Location Dispensed Lot Number Expiration Date NDC Neonatal Pediatric Nurse 0.5 mL IM Left Deltoid 0.5 mL [id number] 12/21/25 96014-605-23 [employer] VIS Given Date VIS Provided VIS Publication Date 04/21/25 Single Vaccine 24 Eligibility Eligibility Date Funding Source Not VFC Eligible 04/21/25 Private Boostrix Tdap 2.5 Lf unit-8 mcg-5 Lf/0.5 mL intramuscular syringe Performing Provider: DARREN Nagy Performing Location: [facility] [place] [facility] Administered by: Paulina Cintron MA on 04/21/25 09:14 Dose Route Admin Location Dispensed Lot Number Expiration Date ND Neonatal Pediatric Nurse 0.5 mL IM Right Deltoid 0.5 mL [id number] 05/21/27 64931-771-07 [employer] Total Dispensed Waste 0.5 mL 0 % VIS Given Date VIS Provided VIS Publication Date 04/21/25 Single Vaccine 21 Eligibility Eligibility Date Funding Source Not VFC Eligible 04/21/25 Private Results Reviewed Results Reviewed: Laboratory Last Values Hgb A1c (Clinic) 7.7 % (4.0-6.0) H 04/21/25 08:42 Coding Level of Care Code Est Pt Level 4 (96038) Complex EM visit Add On G2211 Diagnoses Diabetes mellitus type 2 with complications E11.8 Hyperlipidemia associated with type 2 diabetes mellitus E11.69; E78.5 Uncomplicated alcohol dependence F10.20 Substance use status: uncomplicated Peripheral sensory neuropathy due to type 2 diabetes mellitus E11.42 Influenza vaccination administered at current visit Z23 Need for Tdap vaccination Z23 Additional Codes PHQ-9 - 41228 - PHQ-9 Billing: Yes ([id number]) Assessment & Plan Assessment & Plan (1) Diabetes mellitus type 2 with complications: Comment: HLD and Obesity BMI > 33 and neuropathy Code(s): E11.8 - Type 2 diabetes mellitus with unspecified complications Category: Medical (2) Hyperlipidemia associated with type 2 diabetes mellitus: Comment: LDL goal less than 70. on rosuvastatin 40 mg p.o. daily. Code(s): E11.69 - Type 2 diabetes mellitus with other specified complication; E78.5 - Hyperlipidemia, unspecified Category: Medical (3) EtOH dependence: Comment: previous everyday ETOH use. About 60 beers a week. Reduction encouraged. B12 at the low end of normal. on B12 2000 mcg daily. no etoh since for the last 2 weeks Code(s): F10.20 - Alcohol dependence, uncomplicated Category: Medical Qualifiers: Substance use status: uncomplicated Qualified Code(s): F10.20 - Alcohol dependence, uncomplicated (4) Peripheral sensory neuropathy due to type 2 diabetes mellitus: Comment: Affecting bilateral lower extremities. Goal will be to control diabetes and cholesterol. Monitor skin integrity Code(s): E11.42 - Type 2 diabetes mellitus with diabetic polyneuropathy Category: Medical (5) Influenza vaccination administered at current visit: Onset Date: ~04/21/25 Code(s): Z23 - Encounter for immunization Category: Medical (6) Need for Tdap vaccination: Onset Date: ~04/21/25 Code(s): Z23 - Encounter for immunization Category: Medical Plan . Orders: Orders Lipid Panel Today E11.69 - Type 2 diabetes mellitus with other specified complication, E11.8 - Type 2 diabetes mellitus with unspecified complications, E78.5 - Hyperlipidemia, unspecified Microalbumin, Random (w Creat) Today E11.69 - Type 2 diabetes mellitus with other specified complication, E11.8 - Type 2 diabetes mellitus with unspecified complications, E78.5 - Hyperlipidemia, unspecified AMB Hemoglobin A1c Today E11.69 - Type 2 diabetes mellitus with other specified complication, E11.8 - Type 2 diabetes mellitus with unspecified complications, E78.5 - Hyperlipidemia, unspecified, Z13.9 - Encounter for screening, unspecified TDaP Immunization Today Z23 - Encounter for immunization Comprehensive [place]. Panel Fast Today E11.69 - Type 2 diabetes mellitus with other specified complication, E11.8 - Type 2 diabetes mellitus with unspecified complications, E78.5 - Hyperlipidemia, unspecified Vitamin B12 and Folate Today E11.69 - Type 2 diabetes mellitus with other specified complication, E11.8 - Type 2 diabetes mellitus with unspecified complications, E78.5 - Hyperlipidemia, unspecified Influenza [id number] Immunization Today Z23 - Encounter for immunization
[2025-04-21 08:39] VITALS: BP 138/76; PULSE 75; RESP 12; TEMP 36.2; O2SAT 96; BMI 33.8
--- OUTSIDE RECORDS SUMMARY | 2025-04-21 09:06 | XMS_ITS ---
Author Name [facility] Organization Unknown Care Team Organization Name Specialty Phone Email Start Date End Da mary [facility] NANNETTE MARTINEZ Primary Care 05/01/2022 02/10/20 24
== END 2025-04-21 09:15 | disposition home or self-care (01) ==
LOC: HO.HMCFM 08:33
PROVIDERS: PCP Nurse Practitioner Family; Visit Provider Nurse Practitioner Family
DX: E11.8 Type 2 diabetes mellitus with unspecified complications (principal); E11.69 Type 2 diabetes mellitus with other specified complication; F10.20 Alcohol dependence, uncomplicated; E11.42 Type 2 diabetes mellitus with diabetic polyneuropathy; E78.5 Hyperlipidemia, unspecified; Z23 Encounter for immunization

== ENCOUNTER 2025-04-21 08:32 | Outpatient (REF) | payer OTHER, SELFPAY ==
[2025-04-21 12:16] LABS: Alanine Aminotransferase 21 U/L (0-40); Albumin Level 4.5 g/dL (3.5-5.0); Alkaline Phosphatase 59 U/L (39-117); Anion Gap 10 (12-20); Aspartate Amino Transferase 22 U/L (5-37); Blood Urea Nitrogen 14 mg/dL (9-16); Calcium 9.3 mg/dL (8.4-10.2); Carbon Dioxide 27 mmol/L (22-29); Chloride 107 mmol/L (96-108); Cholesterol 186 mg/dL (<200); Estimated Glomerular Filt Rate > 60; HDL Cholesterol 38 mg/dL (>40); Potassium 3.8 mmol/L (3.3-5.1); Sodium 140 mmol/L (135-145); Total Protein 7.4 g/dL (6.5-8.0); Triglycerides 166 mg/dL (<150)
[2025-04-21 12:36] LABS: Microalbum/Creatinine Ratio Ur 7.8 ug/mg cr (<30)
[2025-04-21 12:43] LABS: Folate 9.5 ng/mL (> or = 4.0); Vitamin B12 329 pg/mL (200-900)
== END 2025-04-21 08:33 | disposition home or self-care (01) ==
LOC: HO.WFDLDS 08:32
PROVIDERS: PCP Nurse Practitioner Family; Visit Provider Nurse Practitioner Family
DX: E11.69 Type 2 diabetes mellitus with other specified complication (principal); E78.5 Hyperlipidemia, unspecified; E11.9 Type 2 diabetes mellitus without complications; L40.9 Psoriasis, unspecified; F10.21 Alcohol dependence, in remission; E53.8 Deficiency of other specified B group vitamins; E11.42 Type 2 diabetes mellitus with diabetic polyneuropathy; Z23 Encounter for immunization; Z79.84 Long term (current) use of oral hypoglycemic drugs
CPT/HCPCS: 36415; 80053; 80061; 82043; 82570; 82607; 82746; 83036; 90471; 90472; 90656; 90715; 96127; 99212